=== PATIENT | female | born 1985 | race Caucasian/White ===

== ENCOUNTER 2016-06-24 14:03 | Emergency (ER) | payer MEDICAID ==
[2016-06-24 15:32] VITALS: BP 131/83
--- NOTE | 2016-06-25 01:32 | ER ---
DATE SEEN: 06/24/2016 ADDENDUM: TIME SEEN: The patient was seen at 1448 hours. /[id number] REGAN/CATA
--- NOTE | 2016-06-28 08:00 | ER ---
DATE SEEN: 06/24/2016 TIME SEEN: This patient was seen at 1448 hours HISTORY OF PRESENT ILLNESS: This 31-year-old 3, para 2, currently woman comes in accidentally cutting her left non-dominant index finger with scissors while attempting to separate 2 frozen meat patties a few minutes ago before arrival. CURRENT MEDICATIONS: 1. Metoclopramide. 2. vitamins. PAST SURGICAL HISTORY: Status post carpal tunnel release. 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 ALLERGIES: Latex. REVIEW OF SYSTEMS: Negative. PHYSICAL EXAMINATION: VITAL SIGNS: 81.647 kg and 1.7 meters. Vital signs not on the chart. GENERAL: Alert woman, in mild distress. An overweight woman. LUNGS: Clear. HEART: Without murmur. ABDOMEN: Soft. EXTREMITIES: Left non - dominant index finger radial-dorsal surface laceration without tendon disruption. Wound has been cleansed and injected with lidocaine 1% with 1:100,000 epinephrine and closed with 4 stitches of interrupted 4-0 Ethilon. No complications. ASSESSMENT: Laceration, 4 cm, left index finger by scissors, while attempting to separate 2 frozen patties. PLAN: Follow up with doctor in 14 days for suture removal. Keep clean. Use bacitracin daily. Use Tylenol, no more than 1000 mg daily. Do not use ibuprofen because of current . /[id number] REGAN/CATA MTDD
== END 2016-06-24 15:30 | disposition home or self-care (01) ==
LOC: FB.ED 14:03
DX: S61.211A Laceration without foreign body of left index finger without damage to nail, initial encounter (principal); W45.8XXA Other foreign body or object entering through skin, initial encounter; Y93.89 Activity, other specified; Z33.1 Pregnant state, incidental
CPT/HCPCS: 12002; 99282; A4217; 12001

== ENCOUNTER 2017-06-26 04:47 | Emergency (ER) | payer MEDICAID ==
[2017-06-26 05:17] VITALS: BP 141/93
[2017-06-26] MEDS ORDERED: Ketorolac 60 MG/2 ML SDV IM ONE (05:56)
--- NOTE | 2017-06-26 06:02 | EDM.PDOC ---
ED HPI GENERAL MEDICAL PROBLEM - General Chief Complaint: Lower Extremity Injury/Pain Stated Complaint: LT ANKLE PAIN Time Seen by Provider: 06/26/17 05:35 Source of Information: Reports: Patient History Limitations: Reports: No Limitations - History of Present Illness INITIAL COMMENTS - FREE TEXT/NARRATIVE: c/o L ankle pain stated she fell, has pain at the anterior L ankle says she fell on stairs at friends house has had surgery 3 times on the ankle in [place], scheduled to have surgery in 1.5w in [facility], does not know the name of the surgeon, says some old bone is going to be removed XR shows old lateral malleolus fx that is healed with heterotopic bone below the tip, minimal STS lateral does not work outside house, has an 8yo son and 4mo daughter, works 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, came by [employer] acute intoxicated pt swearing at me when I asked her whether she wanted crutches and was told to use polite language Rt ankle Pain Score (Numeric/FACES): 9 - Related Data Allergies Allergy/AdvReac Type Severity Reaction Status Date / Time latex Allergy Rash Verified 06/26/17 05:09 Home Meds: Home Meds clonazePAM [Klonopin] 1 mg PO TID 06/26/17 [History] Past Medical History - Past Health History Medical/Surgical History: Denies Medical/Surgical History HEENT History: Reports: None Cardiovascular History: Reports: None Respiratory History: Reports: None Gastrointestinal History: Reports: None Genitourinary History: Reports: None 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 OB/BYN History: one child Musculoskeletal History: Reports: Other (See Below) Other Musculoskeletal History: states that she has carpal tunnel syndrome Neurological History: Reports: None Psychiatric History: Reports: Anxiety, Depression, Panic Attack Endocrine/Metabolic History: Reports: None Immunologic History: Reports: None Oncologic (Cancer) History: Reports: None Dermatologic History: Reports: None - Infectious Disease History Infectious Disease History: Reports: None - Past Surgical History Head Surgeries/Procedures: Reports: None Other Musculoskeletal Surgeries/Procedures:: back and ankle surgery Social & Family History - Family History Family Medical History: Noncontributory - Tobacco Use Smoking Status *Q: Never Smoker Years of Tobacco use: 8 Packs/Tins Daily: 1 Used Tobacco, but Quit: No Second Hand Smoke Exposure: No - Caffeine Use Caffeine Use: Reports: Soda - Recreational Drug Use Recreational Drug Use: No Review of Systems - Review of Systems Review Of Systems: See Below Constitutional: Reports: No Symptoms Eyes: Reports: No Symptoms Ears: Reports: No Symptoms Nose: Reports: No Symptoms Mouth/Throat: Reports: No Symptoms Respiratory: Reports: No Symptoms Cardiovascular: Reports: No Symptoms GI/Abdominal: Reports: No Symptoms Genitourinary: Reports: No Symptoms Musculoskeletal: Reports: Other (L ankle pain) Skin: Reports: No Symptoms Neurological: Reports: No Symptoms Psychiatric: Reports: No Symptoms ED EXAM, GENERAL - Physical Exam Exam: See Below Exam Limited By: Intoxication General Appearance: Alert, WD/WN, No Apparent Distress Extremities: Other (old linear scar at L ankle noted, slight swell over deltoid ligament, very slight tender over anterior joint line without swell, no ecchymosis, foot NT, arch WNL) Course - Vital Signs Last Recorded V/S: Last Vital Signs Temp 36.6 C 06/26/17 04:50 Pulse 95 06/26/17 04:50 Resp 17 06/26/17 04:50 BP 141/93 H 06/26/17 04:50 Pulse Ox 96 06/26/17 04:50 - Orders/Labs/Meds Orders: Active Orders 24 hr Category Date Time Status Ankle 2V Rt [CR] Stat Exams 06/26/17 05:11 Taken Ketorolac [Toradol] Med 06/26/17 05:56 Once 60 mg IM ONETIME ONE Medication Orders Ketorolac Tromethamine (Toradol) 60 mg IM ONETIME ONE Stop: 06/26/17 05:57 Meds: Medications Generic Name Dose Route Start Last Admin Trade Name Ammonq PRN Reason Stop Dose Admin Ketorolac Tromethamine 60 mg 06/26/17 05:56 Toradol IM 06/26/17 05:57 ONETIME ONE Departure - Departure Time of Disposition: 06:03 Disposition: Home, Self-Care 01 Condition: Good Clinical Impression: Left ankle sprain, Acute alcohol intoxication - Discharge Information Instructions: Ankle Sprain, Alcohol Use Disorder Additional Instructions: For pain and inflammation, ibuprofen 200 mg 3 tabs 4 times a day for 7 days. Use Hiro wrap for 7 days, longer if needed. Use ice for 10 minutes 4 times today and tomorrow. Use crutches for the next several days as needed. See your orthopedic surgeon in the next 2-3 days. Stop drinking alcohol. Attend AA. See your doctor in 2-3 days regarding other alcohol treatment program options. - My Orders Last 24 Hours: My Active Orders 06/26/17 05:11 Ankle 2V Rt [CR] Stat 06/26/17 05:56 Ketorolac [Toradol] 60 mg IM ONETIME ONE - Assessment/Plan Last 24 Hours: My Active Orders 06/26/17 05:11 Ankle 2V Rt [CR] Stat 06/26/17 05:56 Ketorolac [Toradol] 60 mg IM ONETIME ONE
--- NOTE | 2017-06-26 10:52 | CR ---
INDICATION: Left ankle pain after a fall. History of previous surgery for ankle fracture. LEFT ANKLE: Three views of the left ankle revealed deformity and evidence of previous ORIF and removal of hardware from the medial malleolar area. There appears to be widening of the medial ankle mortise, suggesting a degree of instability. The previous fracture site appears to be healed. Degenerative changes are noted at the ankle mortise of mild degree. A bony density inferior to the medial malleolus may represent an ununited accessory ossification center or previous chip fracture fragment that did not unite. A possible acute or subacute fracture is noted at the proximal metaphysis of the 5th metatarsal transversely, with separation of fracture fragments of approximately 3-4 mm. Mild degenerative changes are also noted at the subtalar joints. IMPRESSION: 1. Possible acute fracture or subacute fracture at the proximal metaphysis of the 5th metatarsal. 2. Deformity and osteoarthritis, posttraumatic type, at the ankle mortise with possible instability of the ankle mortise - widening of the medial ankle mortise joint space. 3. Subtalar degenerative changes. If old films become available, additional dictation will generated as necessary. Report was called to Dr. Chu at approximately 1014 hours, 06/26/2017. PRISCILLA
== END 2017-06-26 06:20 | disposition home or self-care (01) ==
LOC: FB.ED 04:47
DX: S93.422A Sprain of deltoid ligament of left ankle, initial encounter (principal); F10.129 Alcohol abuse with intoxication, unspecified; Z91.040 Latex allergy status; W10.9XXA Fall (on) (from) unspecified stairs and steps, initial encounter; Y92.009 Unspecified place in unspecified non-institutional (private) residence as the place of occurrence of the external cause
CPT/HCPCS: 73610; 96372; 99283; J1885

== ENCOUNTER 2018-06-07 06:48 | Emergency (ER) | payer MEDICAID ==
[2018-06-07 07:01] VITALS: BP 139/85
[2018-06-07] MEDS ORDERED: hydrOXYzine HCl 50 MG/ML SDV IM ONE (07:27)
[2018-06-07] MEDS ORDERED: Ketorolac 60 MG/2 ML SDV IM ONE (07:27)
--- NOTE | 2018-06-07 07:35 | EDM.PDOC ---
ED HPI GENERAL MEDICAL PROBLEM - General Chief Complaint: General Stated Complaint: ABD PAIN Time Seen by Provider: 06/07/18 07:10 Source of Information: Reports: Patient History Limitations: Reports: No Limitations - History of Present Illness INITIAL COMMENTS - FREE TEXT/NARRATIVE: c/o L rib pain x 1m pt with tender rib to the touch x 1m, inc'd pain with movement has not taken pain meds at home MPMP indicates multiple fills of clonazepam in the past yr including 70 tabs 11d ago, 5 fills of oxycodone, 1 fill of tramadol pt says she cannot find her clonazepam and asking for something here has 1.5 and 9 yo at home, not working here with and youngest child, says "I have a bum back and bad ankle" and "my does most of the walking and going up and down stairs." 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 was seen 2w ago with c/o back pain, had rib pain then but did not d/w physician pt asked re x-ray, told that it would not benefit altho she should f/u with PCP in next week for further evaluation and recommendations L rib area Pain Score (Numeric/FACES): 9 - Related Data Allergies Allergy/AdvReac Type Severity Reaction Status Date / Time latex Allergy Rash Verified 06/07/18 06:55 Home Meds: Home Meds clonazePAM [Klonopin] 1 mg PO TID 06/26/17 [History] Venlafaxine HCl [Venlafaxine ER] 150 mg PO DAILY 05/11/18 [History] Venlafaxine [Effexor XR] 75 mg PO DAILY 05/11/18 [History] Past Medical History - Past Health History Medical/Surgical History: Denies Medical/Surgical History HEENT History: Reports: None Cardiovascular History: Reports: None Respiratory History: Reports: None Gastrointestinal History: Reports: None Genitourinary History: Reports: Pyelonephritis 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: Musculoskeletal History: Reports: Back Pain, Chronic, Other (See Below) Other Musculoskeletal History: states that she has carpal tunnel syndrome Neurological History: Reports: None Psychiatric History: Reports: Anxiety, Depression, Panic Attack Endocrine/Metabolic History: Reports: Obesity/BMI 30+ Immunologic History: Reports: None Oncologic (Cancer) History: Reports: None Dermatologic History: Reports: None - Infectious Disease History Infectious Disease History: Reports: Chicken Pox - Past Surgical History Head Surgeries/Procedures: Reports: None Other Musculoskeletal Surgeries/Procedures:: back and L ankle surgery x 5 Social & Family History - Family History Family Medical History: Noncontributory - Tobacco Use Smoking Status *Q: Current Every Day Smoker Years of Tobacco use: 1 Packs/Tins Daily: 0.2 - Caffeine Use Caffeine Use: Reports: Soda - Alcohol Use Days Per Week of Alcohol Use: 3 Number of Drinks Per Day: 2 Total Drinks Per Week: 6 - Recreational Drug Use Recreational Drug Use: Yes ED ROS GENERAL - Review of Systems Review Of Systems: See Below Constitutional: Reports: No Symptoms HEENT: Reports: No Symptoms Respiratory: Reports: No Symptoms Cardiovascular: Reports: No Symptoms Endocrine: Reports: No Symptoms GI/Abdominal: Reports: No Symptoms : Reports: No Symptoms Musculoskeletal: Reports: Other (chest wall pain and tender) Skin: Reports: No Symptoms Neurological: Reports: No Symptoms Psychiatric: Reports: No Symptoms Hematologic/Lymphatic: Reports: No Symptoms Immunologic: Reports: No Symptoms ED EXAM, GENERAL - Physical Exam Exam: See Below Exam Limited By: Other (alcohol on breath) General Appearance: Alert, WD/WN, Mild Distress Eye Exam: Bilateral Eye: EOMI, Normal Inspection Ears: Normal External Exam Nose: Normal Inspection Throat/Mouth: Normal Inspection, Normal Voice, No Airway Compromise Head: Atraumatic, Normocephalic Neck: Normal Inspection, Supple, Non-Tender, Full Range of Motion. No: Lymphadenopathy (R), Lymphadenopathy (L) Respiratory/Chest: No Respiratory Distress, Lungs Clear, Normal Breath Sounds, Other (has 1+ tender along ribs under L breast from MCL to AAL, ribs NT elsewhere, no clinical evidence of fx) Cardiovascular: Regular Rate, Rhythm, No Edema, No Gallop, No JVD, No Murmur GI/Abdominal: Soft, Non-Tender, No Distention Extremities: Normal Inspection Neurological: Alert, Oriented, CN II-XII Intact, No Motor/Sensory Deficits Psychiatric: Anxious Skin Exam: Warm, Dry, Intact, Normal Color, No Rash Lymphatic: No Adenopathy Course - Vital Signs Last Recorded V/S: Last Vital Signs Temp 36.7 C 06/07/18 06:50 Pulse 130 H 06/07/18 06:50 Resp 20 06/07/18 06:50 BP 139/85 06/07/18 06:50 Pulse Ox 98 06/07/18 06:50 - Orders/Labs/Meds Orders: Active Orders 24 hr Category Date Time Status Ketorolac [Toradol] Med 06/07/18 07:27 Once 60 mg IM ONETIME ONE hydrOXYzine HCl [Vistaril] Med 06/07/18 07:27 Once 50 mg IM ONETIME ONE Medication Orders Hydroxyzine HCl (Vistaril) 50 mg IM ONETIME ONE Stop: 06/07/18 07:28 Meds: Medications Generic Name Dose Route Start Last Admin Trade Name Kelvin PRN Reason Stop Dose Admin Hydroxyzine HCl 50 mg 06/07/18 07:27 Vistaril IM 06/07/18 07:28 ONETIME ONE Ketorolac Tromethamine 60 mg 06/07/18 07:27 Toradol IM 06/07/18 07:28 ONETIME ONE - Re-Assessments/Exams Free Text/Narrative Re-Assessment/Exam: 06/07/18 07:38 pt showing poor judgment and emotional liability, perhaps influenced by alcohol may have alcohol abuse given intoxication at 7 AM in the morning may need to see an alcohol and substance abuse counselor Departure - Departure Time of Disposition: 07:28 Disposition: Home, Self-Care 01 Condition: Good Clinical Impression: Intercostal muscle strain - Discharge Information *PRESCRIPTION DRUG MONITORING PROGRAM REVIEWED*: Not Applicable *COPY OF PRESCRIPTION DRUG MONITORING REPORT IN PATIENT FRED: Not Applicable Instructions: Muscle Strain Referrals: PCP,None [Primary Care Provider] - Additional Instructions: In order to treat inflammation and break the pain cycle, take ibuprofen 200 mg 3 tabs and acetaminophen 325 mg 2 tabs 4 times a day for 7 days. Use ice for 10 minutes 4 times a day for 2 days, then change to head. Avoid lying on the left side. See your doctor in 5-7 days. - My Orders Last 24 Hours: My Active Orders 06/07/18 07:27 Ketorolac [Toradol] 60 mg IM ONETIME ONE hydrOXYzine HCl [Vistaril] 50 mg IM ONETIME ONE - Assessment/Plan Last 24 Hours: My Active Orders 06/07/18 07:27 Ketorolac [Toradol] 60 mg IM ONETIME ONE hydrOXYzine HCl [Vistaril] 50 mg IM ONETIME ONE
== END 2018-06-07 08:15 | disposition left against medical advice (07) ==
LOC: FB.ED 06:48
DX: S29.011A Strain of muscle and tendon of front wall of thorax, initial encounter (principal); F41.9 Anxiety disorder, unspecified; F32.9 Major depressive disorder, single episode, unspecified; Z79.899 Other long term (current) drug therapy; Z91.040 Latex allergy status; X58.XXXA Exposure to other specified factors, initial encounter
CPT/HCPCS: 96372; 99283; J1885; J3410